=== PATIENT | male | born 1990 | race Caucasian/White ===

== ENCOUNTER 2021-01-12 17:00 | Emergency (ER) | payer MEDICAID, SELFPAY ==
--- NOTE | ~2021-01-12 | XR_ITS ---
EXAMINATION: XR CHEST CLINICAL INFORMATION: Chest pain COMPARISON: None TECHNIQUE: 2 views of the chest were obtained. FINDINGS: There is mild hyperinflation with flattening of the diaphragm. No focal pneumonia. No effusion or pneumothorax. Normal heart and mediastinum. Normal gas pattern. No acute osseous finding. XR/XR chest 2V IMPRESSION: Hyperinflation
[2021-01-12 17:05] VITALS: BP 115/77; BP 124/80; PULSE 82; PULSE 92; RESP 16; TEMP 36.4; O2SAT 98; O2SAT 99; BMI 20.1
--- NOTE | 2021-01-12 18:23 | ED.GENADULT ---
HPI - General Adult General Chief complaint: General Medical <Heather Ford SPORTS OFFICIAL-BC - Last Filed: 01/12/21 21:35> Stated complaint: non traumatic rib pain, left sided <Heatheroseas Ford SPORTS OFFICIAL-BC - Last Filed: 01/12/21 21:35> Time Seen by Provider: 01/12/21 18:23 <Heather Ford SPORTS OFFICIAL-BC - Last Filed: 01/12/21 21:35> Related Data Allergies/adverse reactions: Allergies Allergy/AdvReac Type Severity Reaction Status Date / Time No Known Allergies Allergy Unverified 03/15/20 19:51 [No Known Allergies*] <Heatheroseas Ford SPORTS OFFICIAL-BC - Last Filed: 01/12/21 21:35> Review of Systems Constitutional: Constitutional: Denies weight gain and Denies weight loss <GASPER GarveyP-BC - Last Filed: 01/12/21 21:35> Cardiovascular: Cardiovascular: Reports no additional cardiovascular complaints <Heatheroseas Ford SPORTS OFFICIAL-BC - Last Filed: 01/12/21 21:35> Respiratory: Respiratory: Reports no additional respiratory complaints <Heather Ford SPORTS OFFICIAL-BC - Last Filed: 01/12/21 21:35> Gastrointestinal: Gastrointestinal: Denies abdominal pain, Denies belching, Denies melena, Denies bloating, Denies change in bowel habits, Denies dyspepsia, Denies heartburn, Denies nausea and Denies vomiting <Heather Ford SPORTS OFFICIAL-BC - Last Filed: 01/12/21 21:35> Musculoskeletal: Comments: Rib pain from smoking marijuana <Heatheroseas Ford SPORTS OFFICIAL-BC - Last Filed: 01/12/21 21:35> Neurologic: Reports system reviewed and no additional complaints, except as documented <Heather Ford SPORTS OFFICIAL-BC - Last Filed: 01/12/21 21:35> Psychiatric: Psychiatric: Reports no additional psychiatric complaints <Heatheroseas Ford, SPORTS OFFICIAL-BC - Last Filed: 01/12/21 21:35> PMFSH Past Medical History Medical History: Medical History (Updated 01/14/21 @ 00:01 by Background Daemon) Substance abuse <Heather D Liliana, SPORTS OFFICIAL-BC - Last Filed: 01/12/21 21:35> Social History Social History: Social History Alcohol intake: current Smoked in Last 30 Days: Yes Use of substances other than those prescribed or required for medical reasons: Yes Substance Use Type: Crack/Cocaine and Marijuana Any prior treatment program specific to substance use: Yes Advance Directives: No Advance Directives Information Provided: No <LAURA Garvey - Last Filed: 01/12/21 21:35> Physical Exam Vital Signs: Vital Signs: Last Vital Signs Temp 97.2 F 01/13/21 08:58 Pulse 74 01/13/21 08:58 Resp 18 01/13/21 08:58 BP 120/83 01/13/21 08:58 Pulse Ox 98 01/13/21 08:58 Body Mass Index 20.1 <LAURA Garvey - Last Filed: 01/12/21 21:35> Vital Signs: Last Vital Signs Temp 97.2 F 01/13/21 08:58 Pulse 74 01/13/21 08:58 Resp 18 01/13/21 08:58 BP 120/83 01/13/21 08:58 Pulse Ox 98 01/13/21 08:58 Body Mass Index 20.1 <Marita Morales NP - Last Filed: 01/13/21 03:40> Vital Signs: Last Vital Signs Temp 97.2 F 01/13/21 08:58 Pulse 74 01/13/21 08:58 Resp 18 01/13/21 08:58 BP 120/83 01/13/21 08:58 Pulse Ox 98 01/13/21 08:58 Body Mass Index 20.1 <FELIZ Carson - Last Filed: 01/13/21 09:04> Vital Signs: Last Vital Signs Temp 97.2 F 01/13/21 08:58 Pulse 74 01/13/21 08:58 Resp 18 01/13/21 08:58 BP 120/83 01/13/21 08:58 Pulse Ox 98 01/13/21 08:58 Body Mass Index 20.1 <Nat Burnham DO - Last Filed: 01/14/21 11:45> Const: General: healthy appearing, no acute distress and well developed <GASPER GarveyP-BC - Last Filed: 01/12/21 21:35> Nutritional Appearance: well nourished <JAMISON Garvey-BC - Last Filed: 01/12/21 21:35> Orientation/consciousness: patient oriented x3 <GASPER GarveyP-BC - Last Filed: 01/12/21 21:35> Neck: Neck: Yes normal visual inspection, Yes full ROM and Yes trachea midline <GASPER GarveyP-BC - Last Filed: 01/12/21 21:35> Thyroid: Thyroid normal <HeatherGASPER MejíaP-BC - Last Filed: 01/12/21 21:35> Resp: Auscultation: clear to auscultation bilaterally <JAMISON Garvey-BC - Last Filed: 01/12/21 21:35> Cardio: Rate: regular rate <JAMISON Garvey-BC - Last Filed: 01/12/21 21:35> Rhythm: regular rhythm <GASPER GarveyP-BC - Last Filed: 01/12/21 21:35> GI: Inspection: Yes normal to inspection and No distended <JAMISON Garvey-BC - Last Filed: 01/12/21 21:35> Palpation (GI): No hepatosplenomegaly present <GASPER GarveyP-BC - Last Filed: 01/12/21 21:35> Auscultation: normal bowel sounds <GASPER GarveyP-BC - Last Filed: 01/12/21 21:35> Skin: General skin exam: elasticity normal, turgor normal and dry skin <GASPER GarveyP-BC - Last Filed: 01/12/21 21:35> Neuro: General: patient oriented x3 <GASPER GarveyP-BC - Last Filed: 01/12/21 21:35> Psych: Mental Status: mental status grossly normal <GASPER GarveyP-BC - Last Filed: 01/12/21 21:35> Speech and movement: Normal speech and movement present and Clear speech present <Heather D Liliana, SPORTS OFFICIAL-BC - Last Filed: 01/12/21 21:35> Affect: normal affect <LAURA Garvey - Last Filed: 01/12/21 21:35> Attitude: cooperative <Heather Montoya LAURA Ford - Last Filed: 01/12/21 21:35> Course Course Course Narrative: 30-year-old homeless male is here today for complaining of rib pain. Patient reports that he smokes marijuana and uses cocaine and was told to stop both. Recently seen at [facility] for same. He reports that he has lung pain when he smokes marijuana. Denies fever or chills. Denies chest pain, shortness of breath with or without exertion. Will order chest x-ray. <LAURA Garvey - Last Filed: 01/12/21 21:35> Reevaluation(s) Reevaluation #1: Chest x-ray normal, no acute processes. Patient reported that he would like to get some help with stopping to use drugs. He used to go to a program in [place] in the past, now this program is closed. Will have recovery code speak to patient <LAURA Garvey - Last Filed: 01/12/21 21:35> 01/13/2021 physician observation continued. Vital signs are stable. Patient is going to living room today at 10 a.m. <FELIZ Carson - Last Filed: 01/13/21 09:04> Time: 09:03 <FELIZ Carson - Last Filed: 01/13/21 09:04> Reevaluation #2: Patient read this closed to recovery code that he sometimes has suicidal thoughts and feels depressed. Patient will be moved to behavioral area. Will order care team to speak to him. Patient would like to have his medications adjusted. Patient referred to Care Team, awaiting disposition. Report given to Marita TSAI. <LAURA Garvey - Last Filed: 01/12/21 21:35> Medical Decision Making Lab Data Labs: Lab Results 01/12/21 01/12/21 01/12/21 Range/Units 20:36 20:36 20:36 Salicylates < 5.0 L (15-30) mg/dL Urine Opiates Screen Not Detected (Not Detect) Acetaminophen < 1 (<30) mcg/mL Ur Barbiturates Screen Not Detected (Not Detect) Ur Phencyclidine Scrn Not Detected (Not Detect) Ur Amphetamines Screen Not Detected (Not Detect) U Benzodiazepines Scrn Not Detected (Not Detect) Urine Cocaine Screen POSITIVE H (Not Detect) U Marijuana (THC) Screen POSITIVE H (Not Detect) <JAMISON Garvey- - Last Filed: 01/12/21 21:35> Lab Results 01/12/21 01/12/21 01/12/21 Range/Units 20:36 20:36 20:36 Salicylates < 5.0 L (15-30) mg/dL Urine Opiates Screen Not Detected (Not Detect) Acetaminophen < 1 (<30) mcg/mL Ur Barbiturates Screen Not Detected (Not Detect) Ur Phencyclidine Scrn Not Detected (Not Detect) Ur Amphetamines Screen Not Detected (Not Detect) U Benzodiazepines Scrn Not Detected (Not Detect) Urine Cocaine Screen POSITIVE H (Not Detect) U Marijuana (THC) Screen POSITIVE H (Not Detect) <Marita Morales EXTRUSION MANAGER - Last Filed: 01/13/21 03:40> Lab Results 01/12/21 01/12/21 01/12/21 Range/Units 20:36 20:36 20:36 Salicylates < 5.0 L (15-30) mg/dL Urine Opiates Screen Not Detected (Not Detect) Acetaminophen < 1 (<30) mcg/mL Ur Barbiturates Screen Not Detected (Not Detect) Ur Phencyclidine Scrn Not Detected (Not Detect) Ur Amphetamines Screen Not Detected (Not Detect) U Benzodiazepines Scrn Not Detected (Not Detect) Urine Cocaine Screen POSITIVE H (Not Detect) U Marijuana (THC) Screen POSITIVE H (Not Detect) <FELIZ Carson - Last Filed: 01/13/21 09:04> Lab Results 01/12/21 01/12/21 01/12/21 Range/Units 20:36 20:36 20:36 Salicylates < 5.0 L (15-30) mg/dL Urine Opiates Screen Not Detected (Not Detect) Acetaminophen < 1 (<30) mcg/mL Ur Barbiturates Screen Not Detected (Not Detect) Ur Phencyclidine Scrn Not Detected (Not Detect) Ur Amphetamines Screen Not Detected (Not Detect) U Benzodiazepines Scrn Not Detected (Not Detect) Urine Cocaine Screen POSITIVE H (Not Detect) U Marijuana (THC) Screen POSITIVE H (Not Detect) <Natjenna Burnham DO - Last Filed: 01/14/21 11:45> Imaging Data Chest x-ray: Radiologist's impression: FINDINGS: There is mild hyperinflation with flattening of the diaphragm. No focal pneumonia. No effusion or pneumothorax. Normal heart and mediastinum. Normal gas pattern. No acute osseous finding. <LAURA Garvey - Last Filed: 01/12/21 21:35> Discharge Plan Discharge Clinical Impression: Substance abuse <LAURA Garvey - Last Filed: 01/12/21 21:35> Patient Disposition: Xfer to Respite Facility <LAURA Garvey - Last Filed: 01/12/21 21:35> Instructions: Polysubstance Abuse (ED) <LAURA Garvey - Last Filed: 01/12/21 21:35> Additional Instructions: You are being discharged to the living room, please go as discussed Continue home prescribed medications If you have any thoughts of hurting herself or hurting others please return to the ED <LAURA Garvey - Last Filed: 01/12/21 21:35> Referrals: [facility] [Physician] - 2 days <LAURA Garvey - Last Filed: 01/12/21 21:35> Discharge Date/Time: 01/13/21 14:06 <LAURA Garvey - Last Filed: 01/12/21 21:35>
--- NOTE | 2021-01-12 19:12 | PC.NURSE ---
pt requested to speak to someone about drug use. addition councillor at beside pt told councillor that he was having SI and wanted to have his medication reveiwed. pt will be moved to main ed for obervation.
--- NOTE | 2021-01-12 19:17 | MHC.RECOVSUP ---
? Reason for consult Recovery support o Current location: [facility] <del>o</del> <del>Identified</del> <del>substance</del> <del>use</del> <del>concern:</del> <del>Crack</del> <del>Cocaine</del> <del>-</del> <del>Overdose</del> <del>-</del> <del>Withdrawal</del> <del>-</del> <del>Seeking</del> <del>ATS</del> <del>(detox)</del> <del>-</del> <del>Support</del> ? Intervention: <del>o</del> <del>ATS</del> <del>bed</del> <del>search</del> <del>started/completed/in</del> <del>process</del> <del>o</del> <del>MAT</del> <del>started</del> <del>or</del> <del>to</del> <del>be</del> <del>started</del> o Community resources provided o Harm reduction discussion ? Plan: <del>o</del> <del>Referral</del> <del>to</del> <del>[facility]</del> <del>o</del> <del>Bed</del> <del>search</del> <del>in</del> <del>progress</del> <del>to</del> o Follow up tomorrow o Patient awaiting crisis evaluation o Patient to follow up with [facility] after discharge ? Additional information: Patient Stated that He don't want to self harm.. That he needs and wants to get his mind right and go to a terminal operations manager Program... That since he left [facility] in [place] has not been able to get help... Stated that He has tried to go to [facility] and they always let him go.. That he don't know what to do... I contacted the care team for assistance
[2021-01-12 21:11] LABS: Acetaminophen LAB < 1 mcg/mL (<30); Amphetamine Screen Urine Not Detected (Not Detect); Barbiturates, Urine Not Detected (Not Detect); Benzodiazepines Screen Urine Not Detected (Not Detect); Cannabinoid Screen Urine POSITIVE (Not Detect); Cocaine Screen Urine POSITIVE (Not Detect); Opiate Screen Urine Not Detected (Not Detect); Phencyclidine Screen Urine Not Detected (Not Detect); Salicylate < 5.0 mg/dL (15-30)
--- NOTE | 2021-01-12 21:45 | MHC.CARE ---
CARE team consult received. Waiting on medical reception.
[2021-01-12 22:00] VITALS: BP 107/68; PULSE 61; RESP 18; TEMP 36.9; O2SAT 98
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
--- NOTE | 2021-01-13 05:41 | PC.NURSE ---
Patient slept through the night, appetite good, elimination intact, appropriate behavior, alert and oriented x 4, VSS, assessed by care team, patient will be discharged to living room in the morning, will continue to monitor.
[2021-01-13 06:09] VITALS: BP 117/79; PULSE 70; RESP 16; TEMP 37; O2SAT 99
--- NOTE | 2021-01-13 07:09 | PC.NURSE ---
patient appears to remain at rest at present, breaths are even and unlabored, appears in no distress
[2021-01-13 08:58] VITALS: BP 120/83; PULSE 74; RESP 18; TEMP 36.2; O2SAT 98
--- NOTE | 2021-01-13 12:00 | MHC.RECOVSUP ---
Recovery Support note: This sheet writer followed up with patient to discuss the plan created by The CARE Team. Patient is agreeable to going to [facility] and requests that we contact them prior so that they are expecting his arrival. This sheet writer reached out to [facility] and spoke with Ramsey. Ramsey reports that they are currently full and people are waiting outside to get in. This sheet writer followed up with Ramsey periodically throughout the morning and [facility] continues to have a wait. They anticipate having openings later on today. Patient is agreeable to waiting until an open spot is available. If a spot does not open up as the day goes on, this sheet writer will discuss alternative discharge plans with patient, such as going to a detention. Discussed case with patient's RN.
== END 2021-01-13 14:06 ==
PROVIDERS: Nurse Practitioner Family; Emergency Provider Emergency Medicine
DX: F12.10 Cannabis abuse, uncomplicated (principal); F14.10 Cocaine abuse, uncomplicated; Z59.0 Homelessness
CPT/HCPCS: 36415; 71046; 80143; 80179; 80307; 99284; 99285

== ENCOUNTER 2021-04-03 11:30 | Emergency (ER) | payer MEDICAID, SELFPAY ==
[2021-04-03 13:02] LABS: COVID-19 Test Negative (Negative); IDNOW Serial# 9DD0AD1C
[2021-04-03 13:29] VITALS: BP 132/77; PULSE 72; RESP 18; TEMP 36.7; O2SAT 98; BMI 22.8
== END 2021-04-03 17:29 | disposition left against medical advice (07) ==
PROVIDERS: Emergency Provider Emergency Medicine
DX: R11.0 Nausea (principal); R51.9 Headache, unspecified; Z20.822 Contact with and (suspected) exposure to COVID-19
CPT/HCPCS: 36415; 87635; 99282; 99283

== ENCOUNTER 2021-04-04 01:41 | Emergency (ER) | payer MEDICAID, SELFPAY ==
--- NOTE | ~2021-04-04 | XR_ITS ---
EXAMINATION: XR CHEST CLINICAL INFORMATION: Cough COMPARISON: Chest radiograph 01/12/2021. TECHNIQUE: 2 views of the chest were obtained. FINDINGS: The cardia style silhouette is normal in appearance. No effusions or pneumothoraces. Normal pattern of pulmonary vasculature. Minimal multilevel anterior endplate osteophytosis of the thoracic spine. No focal pulmonary consolidation. Lateral radiograph demonstrates less than 2.5 cm extent of the hemidiaphragmatic cord suspicious for pulmonary hyperinflation. XR/XR chest 2V IMPRESSION: -No acute cardiopulmonary abnormalities. No change compared with 01/12/2021. -Unchanged findings suspicious for pulmonary hyperinflation which may be seen in the setting of asthma.
[2021-04-04 01:53] VITALS: BP 130/83; PULSE 85; RESP 16; TEMP 36.4; O2SAT 97; BMI 22.8
[2021-04-04 04:00] VITALS: PULSE 85; RESP 16; TEMP 36.4; O2SAT 97
--- NOTE | 2021-04-04 04:32 | PC.NURSE ---
Patient has been sleeping since he was brought back to Bed 19 h and has not vomited at all.
[2021-04-04 05:17] LABS: Basophils Percent Auto 0.4 % (0-2); Eosinophils Absolute Auto 0.1 X10*3/uL (0.0-0.4); Eosinophils Percent Auto 1.2 % (0-4); Hematocrit 42.3 % (42-52); Hemoglobin 14.1 g/dl (14.0-18.0); Imm Gran Abs Auto 0.01 X10*3/uL (0.00-0.03); Imm Gran Pct Auto 0.1 % (0.0-0.4); Mean Corpuscular HGB Conc 33.3 g/dl (31.0-36.0); Mean Corpuscular Hemoglobin 29.1 pg (27.0-33.0); Mean Corpuscular Volume 87.4 fL (80-98); Mean Platelet Volume 8.4 fL (9.4-12.4); Monocytes Absolute Auto 0.9 X10*3/uL (0.1-1.2); Monocytes Percent Auto 11.6 % (2-11); Neutrophils Absolute Auto 4.6 X10*3/uL (2.0-8.3); Neutrophils Percent Auto 60.7 % (45-73); Platelet Count 214 X10*3/uL (160-400); Red Blood Count 4.84 X10*6/uL (4.60-5.80); Red Cell Distribution Width 13.1 % (11.0-16.0); White Blood Count 7.5 X10*3/uL (4.8-10.8)
[2021-04-04 05:18] LABS: MANUAL DIFF FLAG NO
[2021-04-04 05:43] LABS: Alanine Aminotransferase 11 U/L (0-40); Albumin Level 4.3 g/dL (3.5-5.0); Alkaline Phosphatase 62 U/L (39-117); Anion Gap 9 (12-20); Aspartate Amino Transferase 23 U/L (5-37); Bilirubin Direct 0.2 mg/dL (0.0-0.5); Bilirubin Total 0.4 mg/dL (0.0-1.0); Blood Urea Nitrogen 18 mg/dL (9-16); Calcium 9.5 mg/dL (8.4-10.2); Carbon Dioxide 30 mmol/L (22-29); Chloride 106 mmol/L (96-108); Estimated Glomerular Filt Rate > 60; Glucose Random 103 mg/dL (60-115); Lipase 30 U/L (8-78); Sodium 141 mmol/L (135-145); Total Protein 7.2 g/dL (6.5-8.0)
[2021-04-04 05:55] VITALS: BP 107/62; PULSE 55; RESP 15; TEMP 36.4; O2SAT 97
--- NOTE | 2021-04-04 06:32 | ED_ITS ---
HPI - Nausea/Vomiting/Diarrhea General Chief complaint: Nausea/Vomiting/Diarrhea Stated complaint: Nausea/Diarrhea/Headache Time Seen by Provider: 04/04/21 06:32 Source: patient Mode of arrival: ambulatory Limitations: no limitations History of Present Illness HPI Narrative: hanging out with people in a house who were sick and coughing MD elicited complaint: nausea, diarrhea and other (cough headaches doesn't feel well ) Onset (ago): day(s) (2) Description of vomiting: food contents Associated abdominal pain: No Location of pain: none Severity: mild Exacerbating factors: none Relieving factors: none Context: sick contacts Associated symptoms: cough, headaches, nausea/vomiting and other (diarrhea) Related Data Allergies Allergy/AdvReac Type Severity Reaction Status Date / Time No Known Allergies Allergy Unverified 03/15/20 19:51 [No Known Allergies*] Review of Systems Review of Systems: Constitutional : No Fever, No Chills, No Fatigue, No Malaise ENT/Mouth : No sore throat, No Rhinorrhea Eyes: No Eye Pain, No Swelling, No Redness Cardiovascular : No Chest Pain, No SOB, No Dyspnea on Exertion, No Orthopnea, No Edema, No Palpitations Respiratory : pos Cough, No Sputum, No Wheezing Gastrointestinal : pos Nausea, pos Vomiting, pos Diarrhea, No Constipation, No abdominal Pain, No Hematochezia, No Melena Genitourinary : No Dysuria, No Urinary Frequency, No Hematuria, Musculoskeletal : No joint pain, No Myalgias, No Joint Swelling Skin : No Skin Lesions, No rash Neuro : No Weakness, No Numbness, No Dizziness, No Headache Psych : No Anxiety/Panic, No Depression Heme/Lymph: No Bruising, No Bleeding,No Lymphadenopathy Endocrine : No Polyuria, No Polydipsia All other systems reviewed and are negative [facility] Past Medical History Attestation statement: The following information was validated with the patient. Medical History Substance abuse Social History Social History Alcohol intake: current Substance Use Type: Crack/Cocaine and Marijuana Advance Directives: No Physical Exam Vital Signs: Vital Signs: Last Vital Signs Temp 98.7 F 04/04/21 08:39 Pulse 56 04/04/21 08:39 Resp 17 04/04/21 08:39 BP 114/78 04/04/21 08:39 Pulse Ox 97 04/04/21 08:39 Body Mass Index 22.8 Appearance: Alert. Oriented X3. No acute distress. Eyes: Pupils equal, round and reactive to light. ENT: Pharynx normal. Neck: Normal inspection. Neck supple. CVS: Normal heart rate and rhythm. Pulses normal. Respiratory: No respiratory distress. Breath sounds normal. Abdomen: Soft and non-tender. Skin: Skin warm and dry. Normal skin color. Normal skin turgor. Extremities: No lower extremity edema. No calf ttp Neuro: Oriented X 3. No motor deficit. No sensory deficit. Course Course Course Narrative: no acute findings at this time stable for DC tolerating PO given outpatient information by CARE team can follow up as outpatient has not reported SI MDM - Nausea/Vomiting/Diarrhea MDM Narrative Medical decision making narrative: 31 yo male no sig PMH here with resolved n/v diarrhea but c/o cough and states he was around sick people at this time he is not toxic and asking for food - labs done and wnl, CXR for pneumonia, COVID swab, benign abdominal exam. dispo results and findings. Lab Data Result diagrams: 04/04/21 05:13 04/04/21 05:13 Labs: Lab Results 04/04/21 04/04/21 04/04/21 Range/Units 05:13 05:13 07:22 WBC 7.5 (4.8-10.8) X10*3/uL RBC 4.84 (4.60-5.80) X10*6/uL Hgb 14.1 (14.0-18.0) g/dl Hct 42.3 (42-52) % MCV 87.4 (80-98) fL MCH 29.1 (27.0-33.0) pg MCHC 33.3 (31.0-36.0) g/dl RDW 13.1 (11.0-16.0) % Plt Count 214 (160-400) X10*3/uL MPV 8.4 L (9.4-12.4) fL Immature Gran % (Auto) 0.1 (0.0-0.4) % Neut % (Auto) 60.7 (45-73) % Lymph % (Auto) 26.0 (20-40) % [place] % (Auto) 11.6 H (2-11) % Eos % (Auto) 1.2 (0-4) % Baso % (Auto) 0.4 (0-2) % Lymph # (Auto) 2.0 (1.2-4.9) X10*3/uL [place] # (Auto) 0.9 (0.1-1.2) X10*3/uL Eos # (Auto) 0.1 (0.0-0.4) X10*3/uL Baso # (Auto) 0.0 (0.0-0.2) X10*3/uL Abs Immat Gran (auto) 0.01 (0.00-0.03) X10*3/uL Absolute Neuts (auto) 4.6 (2.0-8.3) X10*3/uL Absolute Nucleated RBC 0.000 (0.0-0.012) X10*3/uL Nucleated RBC % (auto) 0.0 (0.0-0.2) /100WBC Sodium 141 (135-145) mmol/L Potassium 4.0 (3.3-5.1) mmol/L Chloride 106 (96-108) mmol/L Carbon Dioxide 30 H (22-29) mmol/L Anion Gap 9 L (12-20) BUN 18 H (9-16) mg/dL Creatinine 0.82 (0.5-1.4) mg/dL Estim Creat Clear Calc 104.0 Estimated GFR > 60 Random Glucose 103 (60-115) mg/dL Calcium 9.5 (8.4-10.2) mg/dL Total Bilirubin 0.4 (0.0-1.0) mg/dL Direct Bilirubin 0.2 (0.0-0.5) mg/dL AST 23 (5-37) U/L ALT 11 (0-40) U/L Alkaline Phosphatase 62 (39-117) U/L Total Protein 7.2 (6.5-8.0) g/dL Albumin 4.3 (3.5-5.0) g/dL Lipase 30 (8-78) U/L Urine Color YELLOW Urine Appearance CLEAR Urine pH 6.0 (5.0-8.0) Ur Specific [place] >= 1.030 H (1.005-1.025) Urine Protein TRACE (NEG-TRACE) MG/DL Urine Glucose (UA) NEG (NEG) MG/DL Urine Ketones 5 (NEG) MG/DL Urine Blood NEG (NEG) Urine Nitrite NEG (NEG) Ur Leukocyte Esterase NEG (NEG) COVID-19 (EDUARDO) (Negative) COVID-19 Clin Com 04/04/21 Range/Units 07:23 WBC (4.8-10.8) X10*3/uL RBC (4.60-5.80) X10*6/uL Hgb (14.0-18.0) g/dl Hct (42-52) % MCV (80-98) fL MCH (27.0-33.0) pg MCHC (31.0-36.0) g/dl RDW (11.0-16.0) % Plt Count (160-400) X10*3/uL MPV (9.4-12.4) fL Immature Gran % (Auto) (0.0-0.4) % Neut % (Auto) (45-73) % Lymph % (Auto) (20-40) % [place] % (Auto) (2-11) % Eos % (Auto) (0-4) % Baso % (Auto) (0-2) % Lymph # (Auto) (1.2-4.9) X10*3/uL [place] # (Auto) (0.1-1.2) X10*3/uL Eos # (Auto) (0.0-0.4) X10*3/uL Baso # (Auto) (0.0-0.2) X10*3/uL Abs Immat Gran (auto) (0.00-0.03) X10*3/uL Absolute Neuts (auto) (2.0-8.3) X10*3/uL Absolute Nucleated RBC (0.0-0.012) X10*3/uL Nucleated RBC % (auto) (0.0-0.2) /100WBC Sodium (135-145) mmol/L Potassium (3.3-5.1) mmol/L Chloride (96-108) mmol/L Carbon Dioxide (22-29) mmol/L Anion Gap (12-20) BUN (9-16) mg/dL Creatinine (0.5-1.4) mg/dL Estim Creat Clear Calc Estimated GFR Random Glucose (60-115) mg/dL Calcium (8.4-10.2) mg/dL Total Bilirubin (0.0-1.0) mg/dL Direct Bilirubin (0.0-0.5) mg/dL AST (5-37) U/L ALT (0-40) U/L Alkaline Phosphatase (39-117) U/L Total Protein (6.5-8.0) g/dL Albumin (3.5-5.0) g/dL Lipase (8-78) U/L Urine Color Urine Appearance Urine pH (5.0-8.0) Ur Specific [place] (1.005-1.025) Urine Protein (NEG-TRACE) MG/DL Urine Glucose (UA) (NEG) MG/DL Urine Ketones (NEG) MG/DL Urine Blood (NEG) Urine Nitrite (NEG) Ur Leukocyte Esterase (NEG) COVID-19 (EDUARDO) Negative (Negative) COVID-19 Clin Com See Note Discharge Plan Discharge Clinical Impression: Acute viral syndrome Patient Disposition: Home, Self-Care Instructions: Viral Syndrome (ED) Additional Instructions: return to ED for any worsening symptoms or concerns NEGATIVE FOR COVID Stand Alone Forms: Work/School Release Print Language: French
[2021-04-04 07:31] LABS: Appearance Urine CLEAR; Color Urine YELLOW; Glucose Urine UA NEG (NEG); Leukocyte Esterase Urine NEG (NEG); Nitrite Urine NEG (NEG); Specific Gravity - Urine >= 1.030 (1.005-1.025); Urine Blood NEG (NEG); Urine Ketones 5 MG/DL (NEG); Urine Protein TRACE MG/DL (NEG-TRACE)
[2021-04-04 07:45] LABS: COVID-19 Test Negative (Negative)
[2021-04-04 08:39] VITALS: BP 114/78; PULSE 56; RESP 17; TEMP 37.1; O2SAT 97
--- NOTE | 2021-04-04 10:55 | MHC.CARE ---
CARE Team provided Pt with resources for local community supports on the request of CM.
== END 2021-04-04 10:52 | disposition home or self-care (01) ==
PROVIDERS: Emergency Provider Emergency Medicine
DX: B34.9 Viral infection, unspecified (principal); Z20.822 Contact with and (suspected) exposure to COVID-19
CPT/HCPCS: 36415; 71046; 80053; 81003; 82248; 83690; 85025; 87635; 99284

== ENCOUNTER 2021-07-21 09:13 | Emergency (ER) | payer MEDICAID, SELFPAY ==
[2021-07-21 09:37] VITALS: BP 128/75; PULSE 80; RESP 12; TEMP 36.7; O2SAT 100; BMI 21.6
[2021-07-21 09:59] LABS: MANUAL DIFF FLAG NO
[2021-07-21 10:10] LABS: Basophils Percent Auto 0.1 % (0-2); Eosinophils Absolute Auto 0.2 X10*3/uL (0.0-0.4); Eosinophils Percent Auto 2.3 % (0-4); Hematocrit 44.1 % (42.0-52.0); Hemoglobin 14.5 g/dl (14.0-18.0); Imm Gran Abs Auto 0.02 X10*3/uL (0.00-0.03); Imm Gran Pct Auto 0.3 % (0.0-0.4); Lymphocytes Percent Auto 28.5 % (20-40); Mean Corpuscular HGB Conc 32.9 g/dl (31.0-36.0); Mean Corpuscular Hemoglobin 29.5 pg (27.0-33.0); Mean Corpuscular Volume 89.6 fL (80.0-98.0); Mean Platelet Volume 8.9 fL (9.4-12.4); Monocytes Absolute Auto 0.8 X10*3/uL (0.1-1.2); Monocytes Percent Auto 11.8 % (2-11); Platelet Count 310 X10*3/uL (160-400); Red Blood Count 4.92 X10*6/uL (4.60-5.80)
[2021-07-21 10:18] LABS: Anion Gap 12 (12-20); Blood Urea Nitrogen 20 mg/dL (9-16); Calcium 9.6 mg/dL (8.4-10.2); Carbon Dioxide 27 mmol/L (22-29); Chloride 102 mmol/L (96-108); Estimated Glomerular Filt Rate > 60; Glucose Random 117 mg/dL (60-115); Potassium 4.1 mmol/L (3.3-5.1); Sodium 137 mmol/L (135-145)
[2021-07-21 10:18] LABS: COVID-19 Test Negative (Negative)
--- NOTE | 2021-07-21 12:11 | ED_ITS ---
HPI - General Adult General Chief complaint: General Medical Stated complaint: headache/nausea/hand & foot pain Time Seen by Provider: 07/21/21 10:13 Source: patient Limitations: language barrier ([facility]ospital healthcare translator used) History of Present Illness HPI narrative: This is a 31-year-old male who is homeless who complains of a headache for 3 days. The headache came on gradually. He has also had associated nausea. He also believes his vision has been blurry. He also complains of joint pain. He notes that his skin and has had this dry, and he does admit to chronic cold exposure. He is hungry and is asking for something to eat. He has a bottle of use with him that he has been drinking. He denies any fever, neck pain or stiffness, chest pain or shortness of breath, cough, abdominal pain. Related Data Allergies Allergy/AdvReac Type Severity Reaction Status Date / Time No Known Allergies Allergy Unverified 03/15/20 19:51 [No Known Allergies*] Review of Systems Review of Systems: Yes all other systems are reviewed and are negative Constitutional: Constitutional: Reports as per HPI, Denies fever(s) and Reports headache(s) Eyes: Eyes: Reports as per HPI and Reports no additional eye complaints ENT: Reports system reviewed and no additional complaints, except as documented, Reports as per HPI, Reports headache(s), Denies nasal congestion, Denies nasal discharge and Denies sore throat Cardiovascular: Cardiovascular: Reports as per HPI, Denies chest pain and Denies dyspnea Respiratory: Respiratory: Reports as per HPI, Denies cough and Denies dyspnea Gastrointestinal: Gastrointestinal: Reports as per HPI, Denies abdominal pain, Denies diarrhea, Reports nausea and Denies vomiting Genitourinary: Genitourinary: Reports as per HPI, Denies hematuria, Denies dysuria and Denies urinary frequency Musculoskeletal: Musculoskeletal: Reports no additional musculoskeletal c omplaints and Denies numbness Comments: Joint pain, pain in hand Integumentary/Breasts: Skin/Breast: Reports as per HPI and Denies rash Neurologic: Reports as per HPI, Denies confusion, Reports headache(s), Denies focal weakness, Denies numbness and Denies Sensory deficit (Neuro) Psychiatric: Psychiatric: Reports no additional psychiatric complaints, Reports as per HPI and Denies confusion Endocrine: Endocrine: Reports no additional endocrine complaints and Reports as per HPI Hematologic/Lymphatic: Hematologic/Lymphatic: Reports no additional hematologic/lymphatic complaints, Reports as per HPI and Reports other (No peripheral edema) [facility] Past Medical History Medical History Substance abuse Social History Social History Alcohol intake: current Substance Use Type: Crack/Cocaine and Marijuana Advance Directives: No Advance Directives Information Provided: No Physical Exam Vital Signs: Vital Signs: Last Vital Signs Temp 98.1 F 07/21/21 09:37 Pulse 80 07/21/21 09:37 Resp 12 07/21/21 09:37 BP 128/75 07/21/21 09:37 Pulse Ox 100 07/21/21 09:37 BMI result Body Mass Index 21.6 Const: General: No confusion Orientation/consciousness: No confusion HENMT: Head: Yes normal to inspection Eyes: General: appearance normal, both eyes and all related structures Eyelids: Yes eyelids normal Conjunctivae: conjunctivae normal Pupils: Equal, round and reactive pupils present Neck: Neck: Yes normal visual inspection and Yes supple Chest: Chest palpation & inspection: normal inspection of the chest Resp: Effort & Inspection: normal respiratory effort Auscultation: clear to auscultation bilaterally Cardio: Rate: regular rate Rhythm: regular rhythm Heart sounds: S1 normal heart sound present, S2 normal heart sound present, no gallops, no murmurs and no rubs GI: Palpation (GI): Soft to palpation, nontender and Other GI palpation findings present (Non-distended) Auscultation: normal bowel sounds Skin: General skin exam: no rashes or lesions noted Neuro: General: No confusion Cranial nerves: Yes Equal, round and reactive pupils present Cognition (Neuro): normal cognition Motor exam (neuro): 5/5 motor strength present throughout Sensory Exam: No Sensory deficit (Neuro) Extrem: General: Yes normal to inspection and Yes no pedal edema Psych: Appearance: grossly normal Affect: normal affect Medical Decision Making MDM Narrative Medical decision making narrative: Patient is homeless, was offered Compazine and Toradol parenterally, refused, left after getting food and p.o. fluids, left beforecompletion of therapy. Patient's primary problem is his homelessness Lab Data Lab results reviewed: Yes I reviewed the patient's lab results. Result diagrams: 07/21/21 09:51 07/21/21 09:51 Labs: Lab Results 07/21/21 07/21/21 07/21/21 Range/Units 09:49 09:51 09:51 WBC 7.0 (4.8-10.8) X10*3/uL RBC 4.92 (4.60-5.80) X10*6/uL Hgb 14.5 (14.0-18.0) g/dl Hct 44.1 (42.0-52.0) % MCV 89.6 (80.0-98.0) fL MCH 29.5 (27.0-33.0) pg MCHC 32.9 (31.0-36.0) g/dl RDW 12.0 (11.0-16.0) % Plt Count 310 (160-400) X10*3/uL MPV 8.9 L (9.4-12.4) fL Immature Gran % (Auto) 0.3 (0.0-0.4) % Neut % (Auto) 57.0 (45-73) % Lymph % (Auto) 28.5 (20-40) % [place] % (Auto) 11.8 H (2-11) % Eos % (Auto) 2.3 (0-4) % Baso % (Auto) 0.1 (0-2) % Lymph # (Auto) 2.0 (1.2-4.9) X10*3/uL [place] # (Auto) 0.8 (0.1-1.2) X10*3/uL Eos # (Auto) 0.2 (0.0-0.4) X10*3/uL Baso # (Auto) 0.0 (0.0-0.2) X10*3/uL Abs Immat Gran (auto) 0.02 (0.00-0.03) X10*3/uL Absolute Neuts (auto) 4.0 (2.0-8.3) x10*3/uL Absolute Nucleated RBC 0.000 (0.0-0.012) X10*3/uL Nucleated RBC % (auto) 0.0 (0.0-0.2) /100WBC Sodium 137 (135-145) mmol/L Potassium 4.1 (3.3-5.1) mmol/L Chloride 102 (96-108) mmol/L Carbon Dioxide 27 (22-29) mmol/L Anion Gap 12 (12-20) BUN 20 H (9-16) mg/dL Creatinine 0.85 (0.5-1.4) mg/dL Estim Creat Clear Calc 104.0 Estimated GFR > 60 Random Glucose 117 H (60-115) mg/dL Calcium 9.6 (8.4-10.2) mg/dL COVID-19 (EDUARDO) Negative (Negative) COVID-19 Clin Com See Note Discharge Plan Discharge Clinical Impression: Headache, Nausea, Homelessness Patient Disposition: Elopement Discharge Date/Time: 07/21/21 12:38
--- NOTE | 2021-07-21 12:37 | PC.NURSE ---
PT WITH PLATER SUPERVISOR AT BEDSIDE STATING I AM HOMELESS, I DON'T WANT AN IV, I WANT SOMETHING TOEAT AND I WANT TO LEAVE. PT ENCOURAGED TO STAY, PT GIVEN SNACKS AND GINGERALE. MD AWARE PT IS ELOPING.
== END 2021-07-21 12:38 | disposition left against medical advice (07) ==
PROVIDERS: Emergency Provider Emergency Medicine
DX: R51.9 Headache, unspecified (principal); R11.0 Nausea; Z59.00 Homelessness unspecified; Z20.822 Contact with and (suspected) exposure to COVID-19; Z79.899 Other long term (current) drug therapy
CPT/HCPCS: 36415; 80048; 85025; 87635; 96374; 96375; 96376; 99282; 99284

== ENCOUNTER 2021-08-27 15:20 | Emergency (ER) | payer MEDICAID, SELFPAY ==
[2021-08-27 15:31] VITALS: BP 138/84; PULSE 90; O2SAT 100
[2021-08-27 16:41] VITALS: BP 124/43; PULSE 96; RESP 18; TEMP 37.6; O2SAT 97; BMI 23.6
--- NOTE | 2021-08-27 17:08 | ED.EXTPRO ---
HPI - Extremity Problem General Chief complaint: Extremity Injury, Upper Stated complaint: ?frostbite Time Seen by Provider: 08/27/21 16:54 Source: patient Mode of arrival: ambulatory Limitations: no limitations History of Present Illness HPI Narrative: Patient is a 31 year old male presenting to the emergency department today with possible bragg bite to his hands. Patient states that he is homeless and he's worried his hands are justo bitten. Patient states that he is also a drug user and he would like treatment. Patient denies any dizziness, lightheadedness, abdominal pain, nausea, vomiting, fever, chills, blurry vision, double vision, loss of vision, chest pain, difficulty breathing, shortness of breath, back pain, night sweats, pain with urination, increased urinary frequency, increased urinary urgency, blood in her urine or stool, syncope or a near syncopal episode, recent trauma or falls, bowel incontinence, bladder incontinence, bowel retention, bladder retention, or any other complaints at this time. Related Data Allergies Allergy/AdvReac Type Severity Reaction Status Date / Time No Known Allergies Allergy Verified 08/27/21 16:41 [No Known Allergies*] Review of Systems Constitutional: Constitutional: Reports no additional constitutional complaints, Denies chills, Denies fever(s) and Denies night sweats Eyes: Eyes: Reports no additional eye complaints, Denies blurry vision, Denies change in vision, Denies diplopia, Denies eye discharge, Denies loss of vision and Denies eye pain ENT: Denies dizziness Cardiovascular: Cardiovascular: Reports no additional cardiovascular complaints, Denies chest pain, Denies lightheadedness, Denies Loss of Consciousness and Denies dyspnea Respiratory: Respiratory: Reports no additional respiratory complaints and Denies dyspnea Gastrointestinal: Gastrointestinal: Reports no additional gastrointestinal complaints, Denies abdominal pain, Denies melena, Denies hematochezia, Denies change in bowel habits and Denies change in stool character Genitourinary: Genitourinary: Reports no additional male genitourinary complaints, Denies hematuria, Denies oliguria, Denies difficulty urinating, Denies dysuria, Denies urinary frequency, Denies urinary hesitancy, Denies urinary incontinence and Denies urinary urgency Musculoskeletal: Musculoskeletal: Reports no additional musculoskeletal complaints, Denies numbness and Denies tingling Neurologic: Denies dizziness, Denies loss of vision, Denies numbness and Denies tingling Psychiatric: Psychiatric: Reports no additional psychiatric complaints Endocrine: Endocrine: Reports no additional endocrine complaints Hematologic/Lymphatic: Hematologic/Lymphatic: Reports no additional hematologic/lymphatic complaints Allergic/Immunologic: Allergic/Immunologic: Reports no additional allergic/immunologic complaints [facility] Past Medical History Attestation statement: The following information was validated with the patient. Source: old records reviewed Medical History Substance abuse Social History Social History Alcohol intake: current Substance Use Type: Crack/Cocaine and Marijuana Advance Directives: No Advance Directives Information Provided: No Physical Exam Vital Signs: Vital Signs: Last Vital Signs Temp 99.7 F 08/27/21 16:41 Pulse 96 08/27/21 16:41 Resp 18 08/27/21 16:41 BP 124/43 L 08/27/21 16:41 Pulse Ox 97 08/27/21 16:41 BMI result Body Mass Index 23.6 Const: General: cooperative, no acute distress, alert and awake Nutritional Appearance: well nourished Orientation/consciousness: patient oriented x3 Limitations: no limitations HENMT: Head: Yes normal to inspection and Yes atraumatic Ears: hearing grossly normal bilaterally and external ears normal General nose exam: Normal external nose present, no nasal discharge noted and no epistaxis Face and sinus: Yes normal facial exam, No abrasion and No laceration Mouth: Normal oral and palatal mucosa present, no drooling and no muffled voice Eyes: General: appearance normal, both eyes and all related structures Periorbital: periorbital findings normal Eyelids: Yes eyelids normal Conjunctivae: conjunctivae normal Pupils: Equal, round and reactive pupils present EOM: EOMs intact bilaterally Neck: Neck: Yes normal visual inspection, Yes full ROM and Yes no lymphadenopathy Chest: Chest palpation & inspection: normal inspection of the chest Resp: Effort & Inspection: normal respiratory effort and able to speak in complete sentences Auscultation: clear to auscultation bilaterally Cardio: Rate: regular rate Rhythm: regular rhythm GI: Inspection: Yes normal to inspection Neuro: General: patient oriented x3 and moves all extremities Cranial nerves: Yes Equal, round and reactive pupils present Cognition (Neuro): normal cognition Motor exam (neuro): 5/5 motor strength present throughout Sensory Exam: Normal double simultaneous stimulation for sensation Coordination: [id number]-ka-[id number] test normal Extrem: General: Yes normal to inspection, Yes full ROM and Yes capillary refill normal Psych: Appearance: grossly normal Mental Status: mental status grossly normal Affect: normal affect Attitude: cooperative Thought process: Normal thought process present Thought content: Normal thought content present Insight: Good insight present (Psych) MDM - Extremity (Nontraumatic) MDM Narrative Medical decision making narrative: Patient is a 31 year old male presenting to the emergency department today requesting detox. Patient's physical exam was unremarkable. Patient's urine was positive for cocaine and THC. I explained my physical exam findings as well as all test results to the patient. I answered all questions asked by the patient. I stressed the importance of the patient taking his medication as prescribed. Patient was given a Lyft to a warm place to stay tonight and information for a detox facility. Patient verbalized agreement and understanding with this treatment plan and discharge. Differential Diagnosis Differential diagnosis: Unlikely cellulitis (drug abuse) Medical Records Attestation: I reviewed the patient's medical records. Lab Data Attestation: I reviewed the patient's lab results. Labs: Lab Results 08/27/21 Range/Units 18:23 Urine Opiates Screen Not Detected (Not Detect) Urine Fentanyl Screen Not Detected (Not Detect) Ur Barbiturates Screen Not Detected (Not Detect) Ur Phencyclidine Scrn Not Detected (Not Detect) Ur Amphetamines Screen Not Detected (Not Detect) U Benzodiazepines Scrn Not Detected (Not Detect) Urine Cocaine Screen POSITIVE H (Not Detect) U Marijuana (THC) Screen POSITIVE H (Not Detect) Discharge Plan Discharge Clinical Impression: Substance abuse Patient Disposition: Xfer Other Transfer Details: Rehab facility. Instructions: Polysubstance Abuse (ED) Additional Instructions: Follow up with your primary care provider. Return to the emergency department immediately if your symptoms worsen or if you develop any dizziness, shortness of breath, difficulty breathing, chest pain, blurry vision, loss of vision, nausea, vomiting, abdominal pain, fever, chills, back pain, or any other complaints. Interventions: ED Discharge Assessment Last Done: 08/27/21 21:31 Discharge Date/Time: 08/28/21 00:10 Print Language: Kiswahili
[2021-08-27 18:45] LABS: Amphetamine Screen Urine Not Detected (Not Detect); Barbiturates, Urine Not Detected (Not Detect); Benzodiazepines Screen Urine Not Detected (Not Detect); Cannabinoid Screen Urine POSITIVE (Not Detect); Cocaine Screen Urine POSITIVE (Not Detect); Fentanyl, urine Not Detected (Not Detect); Opiate Screen Urine Not Detected (Not Detect); Phencyclidine Screen Urine Not Detected (Not Detect)
--- NOTE | 2021-08-27 21:05 | MHC.RECOVSUP ---
? Reason for consult:RECOVERY SUPPORT o?? Current location [facility]? o?? Identified substance use concern ?COCAINE ?? Seeking ATS (detox) ?? Support ? Intervention: o?? ATS bed search started/completed/in process o?? Community resources provided o?? Harm reduction discussion ? Plan: o?? Bed search in progress to o?? Follow up tomorrow? o?? Patient to follow up with [facility] after discharge ? Additional information: ?MET WITH PT. HE STATES THAT HE WANTS TO GO TO DETOX. I WAS ABLE TO FAX HIS INFORMATION TO [facility]. ALSO WAS ABLE TO GET HIM A BED AT [facility] [place] FOR [place].PT. WILL GO TO [facility] TOMORROW AND CONTINUE THE PROCESS OF GETTING INTO TREATMENT.
--- NOTE | 2021-08-27 21:38 | PC.NURSE ---
CARE TEAM FOUND PLACEMENT TO REHAB FACILITY.
--- NOTE | 2021-08-28 08:24 | MHC.CM.ED ---
Received case management consult overnight. Patient was discharged to [facility] overnight.
== END 2021-08-28 00:10 | disposition other institution (70) ==
PROVIDERS: Physician Assistant Medical; Emergency Provider Emergency Medicine Emergency Medical Services
DX: F14.10 Cocaine abuse, uncomplicated (principal); F12.10 Cannabis abuse, uncomplicated; Z71.51 Drug abuse counseling and surveillance of drug abuser; Z79.899 Other long term (current) drug therapy
CPT/HCPCS: 80307; 99283; 99284

== ENCOUNTER 2022-01-16 13:07 | Emergency (ER) | payer MEDICAID, SELFPAY | END 2022-01-16 15:41 | disposition left against medical advice (07) | PROVIDERS: Emergency Provider Emergency Medicine | DX: M79.10 Myalgia, unspecified site (principal); R11.10 Vomiting, unspecified; R19.7 Diarrhea, unspecified ==

== ENCOUNTER 2024-08-12 12:05 | Inpatient (IN) | payer OTHER, SELFPAY ==
--- NOTE | 2024-08-12 | ECG_ITS ---
Test Reason : QT INTERVALS Blood Pressure : */* mmHG Vent. Rate : 82 BPM Atrial Rate : 82 BPM P-R Int : 116 ms QRS Dur : 82 ms QT Int : 350 ms P-R-T Axes : 66 43 4 degrees QTcB Int : 408 ms Normal sinus rhythm Normal ECG No previous ECGs available Referred By: India Rao Electronically Signed By: YOSHI VAN MD
[2024-08-12 12:15] VITALS: BP 95/55; PULSE 74; PULSE 96; RESP 16; TEMP 36.9; O2SAT 100; O2SAT 92; BMI 24.0
--- NOTE | 2024-08-12 12:38 | ED.PSYCH ---
HPI - Psych General Chief Complaint: ETOH/Substance Use Stated Complaint: UNDER THE INFLUENCE, AGITATED, AGGRESSIVE PER EMS Time Seen by Provider: 08/12/24 12:26 Source: patient, EMS, RN notes reviewed, old records reviewed and police Mode of arrival: EMS Limitations: no limitations History of Present Illness ED Provider: Kaitlyn HPI Narrative: Patient is a 34-year-old male presenting to the ED via EMS with police after being found squatting in a building at [address] [place] [address]. Patient reportedly using heroin, was agitated and combative on scene, patient arrived in 4-pt restraints applied by EMS, agitated, screaming. Patient able to be verbally de-escalated on arrival and removed from restraints. He denies any physical complaints. Denies suicidal or homicidal ideation. MD complaint: altered mental status and substance abuse Associated symptoms: denies other symptoms Related Data Home Medications ?Medication ?Instructions ?Recorded ?Confirmed No Known Home Meds 08/12/24 08/12/24 Allergies Allergy/AdvReac Type Severity Reaction Status Date / Time No Known Allergies Allergy Verified 08/12/24 12:31 [No Known Allergies*] Review of Systems Review of Systems: As per HPI Yes all other systems are reviewed and are negative Constitutional: Constitutional: Reports as per HPI PMFSH Past Medical History Medical History Substance abuse Social History Social History Alcohol intake: current Alcohol intake frequency: 3 or more drinks per day Smoked in Last 30 Days: Yes Use of substances other than those prescribed or required for medical reasons: Yes Substance Use Type: Crack/Cocaine and Marijuana Advance Directives: No Advance Directives Information Provided: Yes Physical Exam Vital Signs: Vital Signs: Last Vital Signs Temp 98.4 F 08/12/24 12:15 Pulse 74 08/12/24 12:15 Resp 16 08/12/24 12:15 BP 95/55 L 08/12/24 12:15 Pulse Ox 100 08/12/24 12:15 O2 Del Method Room Air 08/12/24 12:15 BMI result Body Mass Index 24.0 Const: General: cooperative and no acute distress Orientation/consciousness: oriented to person, oriented to place, oriented to time and patient oriented x3 Limitations: no limitations HEENT: Head: Yes normocephalic and Yes atraumatic Ears: external ears normal General nose exam: Normal external nose present Face and sinus: Yes face symmetric Mouth: oropharynx normal and moist mucous membranes Throat: Yes uvula midline Eyes: Pupils: Equal, round and reactive pupils present Neck: Neck: Yes normal visual inspection and Yes supple Resp: Effort & Inspection: normal respiratory effort and able to speak in complete sentences Auscultation: clear to auscultation bilaterally Cardio: Rate: regular rate Rhythm: regular rhythm Heart sounds: S1 normal heart sound present and S2 normal heart sound present GI: Palpation (GI): Soft to palpation and nontender Auscultation: normoactive bowel sounds : General: Yes no CVA tenderness Back/Spine/Pelvis: Back: no CVA tenderness Skin: General skin exam: elasticity normal and turgor normal Neuro: General: oriented to person, oriented to place, oriented to time, patient oriented x3, moves all extremities, no focal motor deficits and CN's II-XI intact bilaterally Cranial nerves: Yes Equal, round and reactive pupils present Cognition (Neuro): normal cognition Extrem: General: Yes full ROM, Yes no pedal edema and Yes no calf tenderness Psych: Appearance: disheveled Speech and movement: Clear speech present Affect: normal affect Attitude: cooperative Thought content: suicidality, no homicidality and no hallucinations Course Reevaluation(s) Reevaluation #1: Per Jerome from CARE team, patient will be inpatient level of care for substance and mental health needs. Time: 18:54 Medical Decision Making Medical Decision Making [facility] Narrative: Patient is a 34-year-old male presenting to the ED via EMS with police after being found squatting in a building at [address] [place] [address]. On exam patient is awake, A+Ox3, VS WNL, afebrile, normal neurological exam without focal deficits, physical exam findings as above. Given reported symptoms and physical exam findings, initial differential includes but is not limited to drug or alcohol intoxication, anxiety, agitation. Labs unremarkable. Ethanol 171. Urine drug screen and UA pending. Will place patient on physician observation for CARE team evaluation. Differential Diagnosis Differential Diagnoses: The differential diagnosis associated with the presentation includes As per [facility] Admission/Observation Consideration of admission/observation: Escalation of care including admission/observation considered Consult Healthcare Provider Management of the patient was discussed with: Behavioral Health Provider Lab Data [facility] Lab Attestation statement: I reviewed the patient's lab results. As per MDM 08/12/24 13:43 08/12/24 13:43 Labs: Lab Results 08/12/24 08/12/24 Range/Units 13:43 18:36 WBC 8.2 (4.8-10.8) X10*3/uL RBC 5.20 (4.60-5.80) X10*6/uL Hgb 15.3 (14.0-18.0) g/dl Hct 44.9 (42.0-52.0) % MCV 86.3 (80.0-98.0) fL MCH 29.4 (27.0-33.0) pg MCHC 34.1 (31.0-36.0) g/dl RDW 12.7 (11.0-16.0) % Plt Count 218 D (160-400) X10*3/uL MPV 9.0 L (9.4-12.4) fL Immature Gran % (Auto) 0.5 H (0.0-0.4) % Neut % (Auto) 81.1 H (45-73) % Lymph % (Auto) 12.7 L (20-40) % [place] % (Auto) 5.0 (2-11) % Eos % (Auto) 0.5 (0-4) % Baso % (Auto) 0.2 (0-2) % Lymph # (Auto) 1.0 L (1.2-4.9) X10*3/uL [place] # (Auto) 0.4 (0.1-1.2) X10*3/uL Eos # (Auto) 0.0 (0.0-0.4) X10*3/uL Baso # (Auto) 0.0 (0.0-0.2) X10*3/uL Abs Immat Gran (auto) 0.04 H (0.00-0.03) X10*3/uL Absolute Neuts (auto) 6.7 (2.0-8.3) x10*3/uL Absolute Nucleated RBC 0.000 (0.0-0.012) X10*3/uL Nucleated RBC % (auto) 0.0 (0.0-0.2) /100WBC Sodium 140 (135-145) mmol/L Potassium 3.6 (3.3-5.1) mmol/L Chloride 107 (96-108) mmol/L Carbon Dioxide 22 (22-29) mmol/L Anion Gap 15 (12-20) BUN 14 (9-16) mg/dL Creatinine 0.77 (0.5-1.4) mg/dL Estim Creat Clear Calc 112.1 Estimated GFR > 60 Random Glucose 171 H (60-115) mg/dL Calcium 9.1 (8.4-10.2) mg/dL Total Bilirubin 0.2 (0.0-1.0) mg/dL AST 38 H (5-37) U/L ALT 24 (0-40) U/L Alkaline Phosphatase 69 (39-117) U/L Total Protein 7.7 (6.5-8.0) g/dL Albumin 4.4 (3.5-5.0) g/dL Urine Color Yellow Urine Appearance Clear Urine pH 5.5 (5.0-9.0) Ur Specific [place] 1.015 (1.005-1.025) Urine Protein Negative (Neg-Trace) mg/dL Urine Glucose (UA) Negative (Negative) mg/dL Urine Ketones Negative (Negative) mg/dL Urine Blood Negative (Negative) Urine Nitrite Negative (Negative) Ur Leukocyte Esterase Negative (Negative) Salicylates < 5.0 L (15-30) mg/dL Urine Opiates Screen Not Detected (Not Detect) Ur Buprenorphine Scrn Not Detected (Not Detect) ng/mL Ur Oxycodone Screen Not Detected (Not Detect) ng/mL Urine Methadone Screen Not Detected (Not Detect) ng/mL Urine Fentanyl Screen Not Detected (Not Detect) Acetaminophen < 3 (<30) mcg/mL Ur Barbiturates Screen Not Detected (Not Detect) Ur Phencyclidine Scrn Not Detected (Not Detect) Ur Amphetamines Screen Not Detected (Not Detect) U Benzodiazepines Scrn Not Detected (Not Detect) Urine Cocaine Screen POSITIVE H (Not Detect) U Marijuana (THC) Screen POSITIVE H (Not Detect) Ethyl Alcohol 171 mg/dL Influenza Type A (PCR) NEGATIVE (Negative) Influenza Type B (PCR) NEGATIVE (Negative) RSV RNA Qual (PCR) NEGATIVE (Negative) SARS-CoV-2 RNA (RT-PCR) NEGATIVE (Negative) External Record Review External record reviewed: Inpatient record, Office record and Outpatient record Discharge Plan Discharge Clinical Impression: Agitation, Alcoholic intoxication Patient Disposition: Still a Patient Prescriptions: No Action No Known Home Meds Print Language: Czech
[2024-08-12 13:51] LABS: MANUAL DIFF FLAG NO
[2024-08-12 13:52] LABS: Basophils Percent Auto 0.2 % (0-2); Eosinophils Percent Auto 0.5 % (0-4); Hematocrit 44.9 % (42.0-52.0); Hemoglobin 15.3 g/dl (14.0-18.0); Imm Gran Abs Auto 0.04 X10*3/uL (0.00-0.03); Imm Gran Pct Auto 0.5 % (0.0-0.4); Lymphocytes Percent Auto 12.7 % (20-40); Mean Corpuscular HGB Conc 34.1 g/dl (31.0-36.0); Mean Corpuscular Hemoglobin 29.4 pg (27.0-33.0); Mean Corpuscular Volume 86.3 fL (80.0-98.0); Monocytes Absolute Auto 0.4 X10*3/uL (0.1-1.2); Neutrophils Absolute Auto 6.7 x10*3/uL (2.0-8.3); Neutrophils Percent Auto 81.1 % (45-73); Platelet Count 218 X10*3/uL (160-400); Red Cell Distribution Width 12.7 % (11.0-16.0); White Blood Count 8.2 X10*3/uL (4.8-10.8)
[2024-08-12 14:06] LABS: Alanine Aminotransferase 24 U/L (0-40); Albumin Level 4.4 g/dL (3.5-5.0); Alkaline Phosphatase 69 U/L (39-117); Anion Gap 15 (12-20); Aspartate Amino Transferase 38 U/L (5-37); Bilirubin Total 0.2 mg/dL (0.0-1.0); Blood Urea Nitrogen 14 mg/dL (9-16); Calcium 9.1 mg/dL (8.4-10.2); Carbon Dioxide 22 mmol/L (22-29); Chloride 107 mmol/L (96-108); Creatinine Clr Calc Pharmacy 112.1; Estimated Glomerular Filt Rate > 60; Ethanol 171 mg/dL; Glucose Random 171 mg/dL (60-115); Potassium 3.6 mmol/L (3.3-5.1); Sodium 140 mmol/L (135-145); Total Protein 7.7 g/dL (6.5-8.0)
[2024-08-12 14:08] LABS: Acetaminophen LAB < 3 mcg/mL (<30); Salicylate < 5.0 mg/dL (15-30)
[2024-08-12 14:29] LABS: Influenza A PCR NEGATIVE (Negative); Influenza B PCR NEGATIVE (Negative); Resp Syncy Virus RNA Qual PCR NEGATIVE (Negative); SARS COV2 PCR INHOUSE NEGATIVE (Negative)
[2024-08-12 18:58] LABS: Appearance Urine Clear; Color Urine Yellow; Glucose Urine UA Negative (Negative); Leukocyte Esterase Urine Negative (Negative); Nitrite Urine Negative (Negative); PH 5.5 (5.0-9.0); Specific Gravity - Urine 1.015 (1.005-1.025); Urine Blood Negative (Negative); Urine Ketones Negative (Negative); Urine Protein Negative (Neg-Trace)
[2024-08-12 19:07] LABS: Amphetamine Screen Urine Not Detected (Not Detect); Barbiturates, Urine Not Detected (Not Detect); Benzodiazepines Screen Urine Not Detected (Not Detect); Buprenorphine Scr Not Detected (Not Detect); Cannabinoid Screen Urine POSITIVE (Not Detect); Cocaine Screen Urine POSITIVE (Not Detect); Fentanyl, urine Not Detected (Not Detect); Methadone Screen, Urine Not Detected (Not Detect); Opiate Screen Urine Not Detected (Not Detect); Oxycodone Screen Urine Not Detected (Not Detect); Phencyclidine Screen Urine Not Detected (Not Detect)
[2024-08-12 20:08] VITALS: BP 144/67; PULSE 99; RESP 16; TEMP 36.9; O2SAT 98
[2024-08-12 22:15] VITALS: BP 121/78; PULSE 90; RESP 15; TEMP 36.9; O2SAT 97
[2024-08-12] MEDS: traZODone HCL 50 MG TABLET PO (22:38)
[2024-08-12] MEDS: hydrOXYzine HCL 25 MG TABLET PO (22:38)
[2024-08-12 23:00] VITALS: BMI 20.9
--- NOTE | 2024-08-13 03:34 | PC.ADMIT ---
Pt is a 34 year old male who was admitted to [facility] from [facility]. He arrived to to our unit at 22:12 with CV status. According to Care Team evaluation pt. was brought to [facility] ER via EMS, and was restrained to stretcher for transport due to his presentation. Pt was found by police squatting in a building in [facility] and reported he was using crack cocaine and alcohol. Pt reported he thinks he overdosed on crack cocaine and alcohol and once he got woken up by police he freaked out a bit. Pt was malodorous and disheveled, he has a ankle monitor on his left ankle but was guarded in regards to providing more information on it. Pt stated he is depressed, feels stuck in cycle of using and not being able to get sober or address his mental health problems. Pt expressed he often self medicates his depression symptoms by using substances and after today is worried what might happen if he continues. Pt is Bruneian speaking, but understands some Honduran. He was calm and cooperative during the admission process. Reported feeling depressed and anxious, but denied SI/HI/AVH. He was placed on CIWA, but denies any withdrawal symptoms. He went to bed shortly after having a snack.
[2024-08-13] MEDS: Folic Acid 1 MG TABLET PO (08:25)
[2024-08-13] MEDS: Thiamine HCL 100 MG TABLET PO (08:25)
[2024-08-13] MEDS: Multivitamin TABLET 1 TAB PO (08:26)
[2024-08-13] MEDS: LORazepam 1 MG TABLET PO (08:33)
[2024-08-13] MEDS: Acetaminophen 325 MG TABLET 650 MG PO (08:33)
[2024-08-13 08:35] VITALS: BP 118/72; PULSE 70; RESP 18; TEMP 36.9; O2SAT 99
[2024-08-13 09:27] LABS: Estimated Average Glucose 105 mg/dL; Hemoglobin A1C 137.1863 umol/L; Hemoglobin A1c % 5.3 % (<6.0); Total Hemoglobin (HGBA1C) 3945.3643 umol/L
--- NOTE | 2024-08-13 09:27 | P.HPPS_ITS ---
HPI Date of Service: 08/13/24 Chief Complaint: ETOH, Depression Sources of Information: patient interviewed, chart reviewed and crisis/core team assessment reviewed HPI Subjective Notes: [place] [facility] Healthcare Proxy: No Guardianship: No Medical Problems Affecting Mental Status: No Narrative: Seen 945am 34 yo male, to ER with EMS, found by the police living in a building in [place], using alcohol and crack cocaine and was in an extremely vulnerable state it is reported when found. Reports depressive sx, self medicating with substances and no current personal or professional supports. He tells EMS it is his belief that he overdosed on substances by accident. Toxicology positive for alcohol 174, cocaine, cannabis. Pt tells team he would like some assistance with treatment. Past Psychiatric History: IP: Denies OP: Denies Medical Evaluation Reviewed: Yes [facility] Medical History (Updated 08/13/24 @ 20:38 by Rosie Alejandre, [employer]) Major depression Cocaine use disorder Alcohol use disorder Substance abuse Substance History: cocaine, cannabis, alcohol Diagnostics Vital Signs (24Hr): Vital Signs - 24 hr 08/12/24 12:15 08/12/24 20:08 08/12/24 22:15 Temperature 98.4 F 98.4 F 98.4 F Pulse Rate 74 99 90 Respiratory Rate 16 16 15 Blood Pressure 95/55 L 144/67 H 121/78 Pulse Oximetry 100 98 97 Oxygen Delivery Method Room Air Room Air 08/13/24 08:35 Temperature 98.4 F Pulse Rate 70 Respiratory Rate 18 Blood Pressure 118/72 Pulse Oximetry 99 Oxygen Delivery Method Room Air BMI result Body Mass Index 20.9 Labs 08/12/24 13:43 08/12/24 13:43 Labs: Laboratory Results - last 48 hr 08/12/24 08/12/24 13:43 18:36 WBC 8.2 RBC 5.20 Hgb 15.3 Hct 44.9 MCV 86.3 MCH 29.4 MCHC 34.1 RDW 12.7 Plt Count 218 D MPV 9.0 L Immature Gran % (Auto) 0.5 H Neut % (Auto) 81.1 H Lymph % (Auto) 12.7 L [place] % (Auto) 5.0 Eos % (Auto) 0.5 Baso % (Auto) 0.2 Lymph # (Auto) 1.0 L [place] # (Auto) 0.4 Eos # (Auto) 0.0 Baso # (Auto) 0.0 Abs Immat Gran (auto) 0.04 H Absolute Neuts (auto) 6.7 Absolute Nucleated RBC 0.000 Nucleated RBC % (auto) 0.0 Sodium 140 Potassium 3.6 Chloride 107 Carbon Dioxide 22 Anion Gap 15 BUN 14 Creatinine 0.77 Estim Creat Clear Calc 112.1 Estimated GFR > 60 Random Glucose 171 H Calcium 9.1 Total Bilirubin 0.2 AST 38 H ALT 24 Alkaline Phosphatase 69 Total Protein 7.7 Albumin 4.4 Urine Color Yellow Urine Appearance Clear Urine pH 5.5 Ur Specific [place] 1.015 Urine Protein Negative Urine Glucose (UA) Negative Urine Ketones Negative Urine Blood Negative Urine Nitrite Negative Ur Leukocyte Esterase Negative Salicylates < 5.0 L Urine Opiates Screen Not Detected Ur Buprenorphine Scrn Not Detected Ur Oxycodone Screen Not Detected Urine Methadone Screen Not Detected Urine Fentanyl Screen Not Detected Acetaminophen < 3 Ur Barbiturates Screen Not Detected Ur Phencyclidine Scrn Not Detected Ur Amphetamines Screen Not Detected U Benzodiazepines Scrn Not Detected Urine Cocaine Screen POSITIVE H U Marijuana (THC) Screen POSITIVE H Ethyl Alcohol 171 Influenza Type A (PCR) NEGATIVE Influenza Type B (PCR) NEGATIVE RSV RNA Qual (PCR) NEGATIVE SARS-CoV-2 RNA (RT-PCR) NEGATIVE Meds/Allergies Meds Home Medications ?Medication ?Instructions ?Recorded ?Confirmed ?Type No Known Home Meds 08/12/24 08/12/24 History Allergies Allergies Allergy/AdvReac Type Severity Reaction Status Date / Time No Known Allergies Allergy Verified 08/12/24 12:31 [No Known Allergies*] Mental Status Exam Mental Status Exam Patient Appearance: Fatigued Patient Orientation: Person, Place and Situation Level of Consciousness: Drowsy Patient Behavior: Guarded and Distractible Mood Description: Depressed Affect Description: Flat Patient Cognition Impaired: No Ability to Follow Directions: Fair Speech Pattern: Impoverished, Spontaneous Speech and Soft-Spoken Memory Description: Episodic Impaired Hallucinations: None Perceptual Disturbances: Depersonalization and Derealization Thought Process: Rumination Thought Content: positive for Circumstantial and positive for Suicidal Ideation (denies) Judgement: Fair Assessment & Plan Assessment & Plan (1) Alcohol use disorder: Status: Acute Code(s): F10.90 - Alcohol use, unspecified, uncomplicated (2) Cocaine use disorder: Status: Acute Code(s): F14.10 - Cocaine abuse, uncomplicated (3) Major depression: Status: Acute Code(s): F32.9 - Major depressive disorder, single episode, unspecified Plan Admit, 15 minute checks Lorazepam detox protocol Medication assessment when detox is in better perspective Collateral contacts Diagnostics as needed Encourage milieu participation Discharge planning Patient educated on: therapeutic strategies Reason for continued inpatient stay Substantial Risk for: med/psych decompensation Statement Statement: I have reviewed the history and physical and performed a pertinent examination on my patient. No changes have occurred unless specified. If the History and Physical was not performed prior to admission, the Hospitalist's service will be consulted for completing the admission physical. Time Spent With Patient Time: Total time managing care of this patient today ____ minutes.
[2024-08-13 09:43] LABS: Cholesterol 165 mg/dL (<200); HDL Cholesterol 107 mg/dL (>40); LDL Cholesterol Calculated 52 mg/dL (<100); Triglycerides 31 mg/dL (<150)
[2024-08-13 09:53] LABS: Free T4 (Free Thyroxine) 0.96 ng/dL (0.71-1.85); Thyroid Stimulating Hormone 0.43 uIU/mL (0.32-4.0)
[2024-08-13 10:09] LABS: Folate 14.6 ng/mL (> or = 4.0); Vitamin B12 412 pg/mL (200-900)
[2024-08-13] MEDS: Nicotine 21 MG PATCH.TD24 TRANSDERMA (10:36)
[2024-08-13 20:00] VITALS: BP 113/67; PULSE 84; RESP 15; TEMP 36.9; O2SAT 97
[2024-08-14] MEDS: Multivitamin TABLET 1 TAB PO (09:22)
[2024-08-14] MEDS: Folic Acid 1 MG TABLET PO (09:22)
[2024-08-14] MEDS: Baclofen 10 MG TABLET 5 MG PO ×3 (09:22→21:32)
[2024-08-14] MEDS: Thiamine HCL 100 MG TABLET PO (09:22)
--- NOTE | 2024-08-14 09:37 | P.PNPSI_ITS ---
Subjective Subjective Date of Service: 08/14/24 Reason For Visit: ETOH, Depression Subjective Notes: Conditional Voluntary and 3 Day Healthcare Proxy: No Guardianship: No Medical Problems Affecting Mental Status: No Interim History: [facility]WA DC. Pt discussed wanting to discharge. No detox sx, I did not want to be admitted . Denies SI,HI, AH,VH. No sx of acute f[place]ick or psychosis Medication Compliance: No Side effects from medications: No Attending Groups: No Review of Systems Acute medical concerns: No Review of Systems Review of Systems denies Mental Status Exam Mental Status Exam Patient Appearance: Appropriate Patient Orientation: Person, Place, Time and Situation Level of Consciousness: Alert Patient Behavior: Talkative and Distractible Mood Description: Constricted Affect Description: Constricted Patient Cognition Impaired: No Ability to Follow Directions: Fair Speech Pattern: Spontaneous Speech and Soft-Spoken Memory Description: Episodic Impaired Hallucinations: None Delusions: Not Present Thought Process: Goal Oriented Thought Content: positive for Circumstantial, positive for Goal Oriented and positive for Suicidal Ideation (denies) Judgement: Good Diagnostics Vital Signs (24Hr): Vital Signs - 24 hr 08/13/24 20:00 Temperature 98.4 F Pulse Rate 84 Respiratory Rate 15 Blood Pressure 113/67 Pulse Oximetry 97 BMI result Body Mass Index 20.9 Labs 08/12/24 13:43 08/12/24 13:43 Labs: Laboratory Results - last 48 hr 08/12/24 08/12/24 08/13/24 13:43 18:36 08:58 WBC 8.2 RBC 5.20 Hgb 15.3 Hct 44.9 MCV 86.3 MCH 29.4 MCHC 34.1 RDW 12.7 Plt Count 218 D MPV 9.0 L Immature Gran % (Auto) 0.5 H Neut % (Auto) 81.1 H Lymph % (Auto) 12.7 L [place] % (Auto) 5.0 Eos % (Auto) 0.5 Baso % (Auto) 0.2 Lymph # (Auto) 1.0 L [place] # (Auto) 0.4 Eos # (Auto) 0.0 Baso # (Auto) 0.0 Abs Immat Gran (auto) 0.04 H Absolute Neuts (auto) 6.7 Absolute Nucleated RBC 0.000 Nucleated RBC % (auto) 0.0 Sodium 140 Potassium 3.6 Chloride 107 Carbon Dioxide 22 Anion Gap 15 BUN 14 Creatinine 0.77 Estim Creat Clear Calc 112.1 Estimated GFR > 60 Random Glucose 171 H Estimat Average Glucose 105 Hemoglobin A1c % 5.3 Calcium 9.1 Magnesium 2.0 Total Bilirubin 0.2 AST 38 H ALT 24 Alkaline Phosphatase 69 Total Protein 7.7 Albumin 4.4 Triglycerides 31 Cholesterol 165 LDL Cholesterol, Calc 52 HDL Cholesterol 107 Vitamin B12 412 Folate 14.6 TSH 0.43 Free T4 0.96 Urine Color Yellow Urine Appearance Clear Urine pH 5.5 Ur Specific [place] 1.015 Urine Protein Negative Urine Glucose (UA) Negative Urine Ketones Negative Urine Blood Negative Urine Nitrite Negative Ur Leukocyte Esterase Negative Salicylates < 5.0 L Urine Opiates Screen Not Detected Ur Buprenorphine Scrn Not Detected Ur Oxycodone Screen Not Detected Urine Methadone Screen Not Detected Urine Fentanyl Screen Not Detected Acetaminophen < 3 Ur Barbiturates Screen Not Detected Ur Phencyclidine Scrn Not Detected Ur Amphetamines Screen Not Detected U Benzodiazepines Scrn Not Detected Urine Cocaine Screen POSITIVE H U Marijuana (THC) Screen POSITIVE H Ethyl Alcohol 171 Influenza Type A (PCR) NEGATIVE Influenza Type B (PCR) NEGATIVE RSV RNA Qual (PCR) NEGATIVE SARS-CoV-2 RNA (RT-PCR) NEGATIVE Medications Medications Current Medications Acetaminophen (Acetaminophen 325 Mg Tablet) 650 mg PO Q6H PRN PRN Reason: Headache/Pain, Scale 1-10 Last Admin: 08/13/24 08:33 Dose: 650 mg Al Hydroxide/Mg Hydroxide (Magnesium Hydrox/Alum Hydrox 30 Ml Oral.Susp) 30 ml PO Q6H PRN PRN Reason: Heartburn/Nausea Baclofen (Baclofen 10 Mg Tablet) 5 mg PO TID [facility] Last Admin: 08/14/24 09:22 Dose: 5 mg Folic Acid (Folic Acid 1 Mg Tablet) 1 mg PO DAILY [facility] Last Admin: 08/14/24 09:22 Dose: 1 mg Hydroxyzine HCl (Hydroxyzine Hcl 25 Mg Tablet) 25 mg PO Q6H PRN PRN Reason: mild anxiety Last Admin: 08/12/24 22:38 Dose: 25 mg Lorazepam (Lorazepam 1 Mg Tablet) 1 mg PO Q2H PRN PRN Reason: ciwa 6-10 Last Admin: 08/13/24 08:33 Dose: 1 mg Lorazepam (Lorazepam 1 Mg Tablet) 2 mg PO Q2H PRN PRN Reason: ciwa 11+ Magnesium Hydroxide (Milk Of Magnesia 30 Ml Oral.Susp) 30 ml PO DAILY PRN PRN Reason: Constipation Multivitamins/Vitamin C (Multivitamin Tablet) 1 tab PO DAILY [facility] Last Admin: 08/14/24 09:22 Dose: 1 tab Nicotine (Nicotine 21 Mg Patch.Td24) 21 mg TRANSDERMA DAILY [facility] Last Admin: 08/14/24 09:24 Dose: Not Given Nicotine Polacrilex (Nicotine Polacrilex 2 Mg Gum) 4 mg BUCCAL Q2H PRN PRN Reason: Nicotine Cravings Thiamine HCl (Thiamine Hcl 100 Mg Tablet) 100 mg PO DAILY [facility] Last Admin: 08/14/24 09:22 Dose: 100 mg Trazodone HCl (Trazodone Hcl 50 Mg Tablet) 50 mg PO BEDTIME MRX1 PRN PRN Reason: Insomnia Last Admin: 08/12/24 22:38 Dose: 50 mg Allergies Allergies Allergy/AdvReac Type Severity Reaction Status Date / Time No Known Allergies Allergy Verified 08/12/24 12:31 [No Known Allergies*] Assessment & Plan Assessment & Plan (1) Alcohol use disorder: Status: Acute Code(s): F10.90 - Alcohol use, unspecified, uncomplicated (2) Cocaine use disorder: Status: Acute Code(s): F14.10 - Cocaine abuse, uncomplicated (3) Major depression: Status: Acute Code(s): F32.9 - Major depressive disorder, single episode, unspecified Plan Admit, 15 minute checks Lorazepam detox protocol Medication assessment when detox is in better perspective Collateral contacts Diagnostics as needed Encourage milieu participation Discharge planning 08/14:KELTON GATES Pt asking for discharge Reason for continued inpatient stay Substantial Risk for: rapid decompensation Time Spent With Patient Time: Total time managing care of this patient today ____ minutes.
[2024-08-14 09:52] VITALS: BP 122/79; PULSE 86; RESP 18; TEMP 36.7; O2SAT 99
[2024-08-15 08:25] VITALS: BP 137/74; PULSE 88; RESP 18; TEMP 36.6; O2SAT 97
--- NOTE | 2024-08-15 08:27 | P.PNPSI_ITS ---
Subjective Subjective Reason For Visit: ETOH, Depression Diagnostics Vital Signs (24Hr): Vital Signs - 24 hr 08/14/24 09:52 08/15/24 08:25 Temperature 98.1 F 97.8 F Pulse Rate 86 88 Respiratory Rate 18 18 Blood Pressure 122/79 137/74 Pulse Oximetry 99 97 Oxygen Delivery Method Room Air Room Air BMI result Body Mass Index 20.9 Labs 08/12/24 13:43 08/12/24 13:43 Labs: Laboratory Results - last 48 hr 08/13/24 08:58 Estimat Average Glucose 105 Hemoglobin A1c % 5.3 Magnesium 2.0 Triglycerides 31 Cholesterol 165 LDL Cholesterol, Calc 52 HDL Cholesterol 107 Vitamin B12 412 Folate 14.6 TSH 0.43 Free T4 0.96 Medications Medications Current Medications Acetaminophen (Acetaminophen 325 Mg Tablet) 650 mg PO Q6H PRN PRN Reason: Headache/Pain, Scale 1-10 Last Admin: 08/13/24 08:33 Dose: 650 mg Al Hydroxide/Mg Hydroxide (Magnesium Hydrox/Alum Hydrox 30 Ml Oral.Susp) 30 ml PO Q6H PRN PRN Reason: Heartburn/Nausea Baclofen (Baclofen 10 Mg Tablet) 5 mg PO TID [facility] Last Admin: 08/14/24 21:32 Dose: 5 mg Folic Acid (Folic Acid 1 Mg Tablet) 1 mg PO DAILY [facility] Last Admin: 08/14/24 09:22 Dose: 1 mg Hydroxyzine HCl (Hydroxyzine Hcl 25 Mg Tablet) 25 mg PO Q6H PRN PRN Reason: mild anxiety Last Admin: 08/12/24 22:38 Dose: 25 mg Lorazepam (Lorazepam 1 Mg Tablet) 1 mg PO Q2H PRN PRN Reason: ciwa 6-10 Last Admin: 08/13/24 08:33 Dose: 1 mg Lorazepam (Lorazepam 1 Mg Tablet) 2 mg PO Q2H PRN PRN Reason: ciwa 11+ Magnesium Hydroxide (Milk Of Magnesia 30 Ml Oral.Susp) 30 ml PO DAILY PRN PRN Reason: Constipation Multivitamins/Vitamin C (Multivitamin Tablet) 1 tab PO DAILY [facility] Last Admin: 08/14/24 09:22 Dose: 1 tab Nicotine (Nicotine 21 Mg Patch.Td24) 21 mg TRANSDERMA DAILY [facility] Last Admin: 08/14/24 09:24 Dose: Not Given Nicotine Polacrilex (Nicotine Polacrilex 2 Mg Gum) 4 mg BUCCAL Q2H PRN PRN Reason: Nicotine Cravings Thiamine HCl (Thiamine Hcl 100 Mg Tablet) 100 mg PO DAILY [facility] Last Admin: 08/14/24 09:22 Dose: 100 mg Trazodone HCl (Trazodone Hcl 50 Mg Tablet) 50 mg PO BEDTIME MRX1 PRN PRN Reason: Insomnia Last Admin: 08/12/24 22:38 Dose: 50 mg Allergies Allergies Allergy/AdvReac Type Severity Reaction Status Date / Time No Known Allergies Allergy Verified 08/12/24 12:31 [No Known Allergies*] Assessment & Plan Assessment & Plan (1) Alcohol use disorder: Status: Acute Code(s): F10.90 - Alcohol use, unspecified, uncomplicated (2) Cocaine use disorder: Status: Acute Code(s): F14.10 - Cocaine abuse, uncomplicated (3) Major depression: Status: Acute Code(s): F32.9 - Major depressive disorder, single episode, unspecified Plan Admit, 15 minute checks Lorazepam detox protocol Medication assessment when detox is in better perspective Collateral contacts Diagnostics as needed Encourage milieu participation Discharge planning Time Spent With Patient Time: Total time managing care of this patient today ____ minutes.
--- NOTE | 2024-08-15 18:08 | P.DS_ITS ---
DS: Providers Provider Date of Service: 08/15/24 Date of admission: 08/12/24 20:55 Date of discharge: 08/15/24 Primary care physician: [facility] Admitting clinician: Rosie Alejandre Attending physician on admission: Clifton Crum Attending physician on discharge: Clifton Crum Discharging clinician: Rosie Alejandre DS: Diagnosis Discharge Diagnosis (1) Alcohol use disorder: Status: Acute (2) Cocaine use disorder: Status: Acute (3) Major depression: Status: Acute DS: Medications Discharge Medications Home Medications: Home Medications ?Medication ?Instructions ?Recorded ?Confirmed No Known Home Meds 08/12/24 08/12/24 Mental Status Exam Mental Status Exam Patient Appearance: Appropriate Patient Orientation: Person, Place, Time and Situation Level of Consciousness: Alert Patient Behavior: Talkative and Distractible Mood Description: Constricted Affect Description: Constricted Patient Cognition Impaired: No Ability to Follow Directions: Fair Speech Pattern: Spontaneous Speech and Soft-Spoken Memory Description: Episodic Impaired Hallucinations: None Delusions: Not Present Thought Process: Goal Oriented Thought Content: positive for Circumstantial, positive for Goal Oriented and positive for Suicidal Ideation (denies) Judgement: Good Data Data Completed and Pending Completed studies during hospitalization [Text1]: 08/12/24 08/12/24 08/13/24 13:43 18:36 08:58 WBC 8.2 RBC 5.20 Hgb 15.3 Hct 44.9 MCV 86.3 MCH 29.4 MCHC 34.1 RDW 12.7 Plt Count 218 D MPV 9.0 L Immature Gran % (Auto) 0.5 H Neut % (Auto) 81.1 H Lymph % (Auto) 12.7 L [place] % (Auto) 5.0 Eos % (Auto) 0.5 Baso % (Auto) 0.2 Lymph # (Auto) 1.0 L [place] # (Auto) 0.4 Eos # (Auto) 0.0 Baso # (Auto) 0.0 Abs Immat Gran (auto) 0.04 H Absolute Neuts (auto) 6.7 Absolute Nucleated RBC 0.000 Nucleated RBC % (auto) 0.0 Sodium 140 Potassium 3.6 Chloride 107 Carbon Dioxide 22 Anion Gap 15 BUN 14 Creatinine 0.77 Estim Creat Clear Calc 112.1 Estimated GFR > 60 Random Glucose 171 H Estimat Average Glucose 105 Hemoglobin A1c % 5.3 Calcium 9.1 Magnesium 2.0 Total Bilirubin 0.2 AST 38 H ALT 24 Alkaline Phosphatase 69 Total Protein 7.7 Albumin 4.4 Triglycerides 31 Cholesterol 165 LDL Cholesterol, Calc 52 HDL Cholesterol 107 Vitamin B12 412 Folate 14.6 TSH 0.43 Free T4 0.96 Urine Color Yellow Urine Appearance Clear Urine pH 5.5 Ur Specific [place] 1.015 Urine Protein Negative Urine Glucose (UA) Negative Urine Ketones Negative Urine Blood Negative Urine Nitrite Negative Ur Leukocyte Esterase Negative Salicylates < 5.0 L Urine Opiates Screen Not Detected Ur Buprenorphine Scrn Not Detected Ur Oxycodone Screen Not Detected Urine Methadone Screen Not Detected Urine Fentanyl Screen Not Detected Acetaminophen < 3 Ur Barbiturates Screen Not Detected Ur Phencyclidine Scrn Not Detected Ur Amphetamines Screen Not Detected U Benzodiazepines Scrn Not Detected Urine Cocaine Screen POSITIVE H U Marijuana (THC) Screen POSITIVE H Ethyl Alcohol 171 Influenza Type A (PCR) NEGATIVE Influenza Type B (PCR) NEGATIVE RSV RNA Qual (PCR) NEGATIVE SARS-CoV-2 RNA (RT-PCR) NEGATIVE DS: Summary Hospital Course Hospital Course: Admission to adult psychiatry for exacerbation of alcohol and cocaine use along with depressive symptoms. Pt declined treatment during admission. Milieu therapy was available to him during his admission. Pt discharged to return to work. He declined referrals. Status at Discharge Functional status at discharge: independent ambulation Overall status at discharge: patient is progressing back to baseline Time Spent with Patient Time attestation: Total time managing care of this patient today ____ minutes. Time spent: Less than 30 minutes Discharge Plan Discharge Anticipated Discharge Date/Time: 08/15/24 12:00 Patient Disposition: Home, Self-Care Discharge Diagnosis: Depression Alcohol Use Disorder Cocaine Use Disorder Referrals: [facility] [Primary Care Provider] - 1 Week Discharge Medications: No Action No Known Home Meds Discharge Orders: Discharge Order (Routine); Ordered 08/15/24 Ordered By: Rosie Alejandre Diet: Advance to usual diet Activity on Discharge: As tolerated Stand Alone Forms: Patient Portal Discharge page, Community Support Print Language: [place] Citizen Care Plan Goals: Abstinence from substances Mood and Behavioral Stabilization Health Concerns: Abstinence from substances Mood and Behavioral Stabilization Plan of Treatment: Pt declines medications and referrals Assessment: No SI,HI,AH,VH No sx of acute freder[place] or psychosis Discharge Date/Time: 08/15/24 12:00
== END 2024-08-15 12:00 | disposition home or self-care (01) | DRG 754 ==
LOC: HO.ED 18:54 → HO.PM5 21:17
PROVIDERS: Registered Nurse Emergency; Admitting Provider Clinical Nurse Specialist Psychiatric/Mental Health, Adult; Emergency Provider Emergency Medicine; Visit Provider Clinical Nurse Specialist Psychiatric/Mental Health, Adult
DX: F32.9 Major depressive disorder, single episode, unspecified (principal); F10.929 Alcohol use, unspecified with intoxication, unspecified; F14.10 Cocaine abuse, uncomplicated; Z59.02 Unsheltered homelessness; F17.210 Nicotine dependence, cigarettes, uncomplicated; Z71.6 Tobacco abuse counseling; Z20.822 Contact with and (suspected) exposure to COVID-19; Y90.6 Blood alcohol level of 120-199 mg/100 ml
CPT/HCPCS: 0241U; 36415; 80053; 80061; 80143; 80179; 80307; 81003; 82607; 82746; 83036; 83735; 84439; 84443; 85025; 93005; 99285; S9485

== ENCOUNTER → 2024-08-12 19:36 | Outpatient (BNV) | payer MEDICAID, SELFPAY | PROVIDERS: Admitting Provider Clinical Nurse Specialist Psychiatric/Mental Health, Adult; Emergency Provider Emergency Medicine; Visit Provider Internal Medicine Cardiovascular Disease | DX: Z13.6 Encounter for screening for cardiovascular disorders (principal) | CPT/HCPCS: 93010 ==

== ENCOUNTER → 2024-08-12 20:55 | Outpatient (BNV) | payer OTHER, SELFPAY | PROVIDERS: Admitting Provider Clinical Nurse Specialist Psychiatric/Mental Health, Adult; Emergency Provider Emergency Medicine; Visit Provider Clinical Nurse Specialist Psychiatric/Mental Health, Adult | DX: F32.2 Major depressive disorder, single episode, severe without psychotic features (principal); F14.10 Cocaine abuse, uncomplicated; F10.90 Alcohol use, unspecified, uncomplicated | CPT/HCPCS: 99232 ==